=== PATIENT | male | born 1960 | race Hispanic/Latino ===

== ENCOUNTER 2019-11-21 15:59 | Observation (INO) | payer BC, SELFPAY ==
--- NOTE | 2019-11-21 16:20 | RAD ---
Chest one view HISTORY: Chest pain. FINDINGS: Cardiac silhouette and pulmonary vasculature are unremarkable. Mediastinum is midline. No c onfluent airspace consolidation or evidence of pneumothorax. IMPRESSION: Normal exam.
[2019-11-21 16:49] LABS: #Basophils 0.1 thou/uL (0.0-0.2); #Eosinphils 0.2 thou/uL (0.0-0.7); #Lymphocytes 2.7 thou/uL (1.20-3.40); #Monocytes 0.7 thou/uL (0.11-0.59); #Neutrophils 5.5 thou/uL (1.40-6.50); %Basophils 0.7 % (0.0-1.0); %Eosinophils 1.8 % (0.0-10.0); %Lymphocytes 29.9 % (21.0-51.0); %Monocytes 7.2 % (0.0-10.0); %Neutrophils 60.4 % (42.0-75.0); Hemoglobin 15.7 g/dL (14.0-18.0); Mean Corpuscular HGB CONC 33.2 g/dL (32.0-36.0); Mean Corpuscular Volume 90.4 fL (78.0-98.0); Mean Platelet Volume 9.4 fL (7.4-10.4); Platelet Count 214 thou/uL (130-400); Red Blood Cell (RBC) Count 5.26 mill/uL (4.70-6.10); White Blood Cell (WBC) Count 9.1 thou/uL (4.8-10.8)
[2019-11-21 17:12] LABS: ALT (SGPT) 57 U/L (8-55); AST (SGOT) 38 U/L (5-34); Albumin 4.4 g/dL (3.5-5.0); Alkaline Phosphatase 74 U/L (40-110); Anion Gap 12 mmol/L (10-20); BUN (Urea Nitrogen) 14 mg/dL (8.4-25.7); Bilirubin, Total 0.3 mg/dL (0.2-1.2); CK (CPK) 272 U/L (30-200); Calc. Creatinine Clearance 0 mL/min (70-130); Calcium 9.2 mg/dL (7.8-10.44); Carbon Dioxide 29 mmol/L (22-29); Chloride 104 mmol/L (98-107); Estimated GFR-MDRD 70; Globulin 3.7 g/dL (2.4-3.5); Glucose 110 mg/dL (70-105); Potassium 3.8 mmol/L (3.5-5.1); Protein, Total 8.1 g/dL (6.0-8.3); Sodium 141 mmol/L (136-145)
[2019-11-21] MEDS ORDERED: Nitroglycerin 2% Ointment 1 INCH/1 GM Packet ONE (17:19)
[2019-11-21 17:55] LABS: Bilirubin Negative (Negative); Blood, Urine Negative (Negative); Clarity Clear (Clear); Glucose, Urine (Dipstick) Normal (Negative); Leukocyte Negative Leu/uL (Negative); Nitrite Negative (Negative); Protein, Urine (Dipstick) 10 mg/dL (Neg-Trace); Urobilinogen Normal mg/dL (Less than 2)
[2019-11-21 18:07] LABS: Amphetamine Not Detected (NotDetected); Barbiturates Screen Not Detected (NotDetected); Benzodiazepine Screen Not Detected (NotDetected); Cocaine Metabolite Screen Not Detected (NotDetected); Medtox Control Line Valid? VALID (VALID); Medtox Reader # READER 1; Methadone Not Detected (NotDetected); Methamphetamine Not Detected (NotDetected); Opiate Screen Not Detected (NotDetected); Oxycodone Screen Not Detected (NotDetected); Phencyclidine (PCP) Not Detected (NotDetected); THC/Cannabinoid Screen Not Detected (NotDetected); Tricyclic Screen Not Detected (NotDetected)
[2019-11-21 18:10] LABS: Acetaminophen Less than 6.0 mcg/mL (10.0-30.0); Alcohol Less than 10 mg/dL (Less than 10); Salicylate Less than 8.0 mg/dL (15.0-30.0)
[2019-11-21 20:02] LABS: Troponin I 0.017 ng/mL (< 0.028)
[2019-11-21 20:29] VITALS: BMI 33.7
[2019-11-21] MEDS ORDERED: Ondansetron PF 4 MG/2 ML Vial IVP PRN (21:12)
[2019-11-21] MEDS ORDERED: Ondansetron ODT 4 MG TAB SL PRN (21:12)
[2019-11-21] MEDS ORDERED: Nitroglycerin 0.4 MG TAB (25 Tab Bottle) SL PRN (22:01)
[2019-11-21] MEDS ORDERED: Acetaminophen 325 MG TAB PO PRN (22:04)
[2019-11-21] MEDS ORDERED: Acetaminophen 650 MG Suppository PR PRN (22:04)
[2019-11-21 23:00] LABS: Troponin I 0.013 ng/mL (< 0.028)
--- NOTE | 2019-11-21 23:22 | HP ---
TIME OF ASSESSMENT: 2100 hours. CHIEF COMPLAINT: Left-sided chest pain. HISTORY OF PRESENT ILLNESS: Mr. Brady is a 59-year-old gentleman, who presents complaining of intermittent chest discomfort for the last 4 days to the left side of his chest. The patient states it feels like a pressure that comes and goes. At its worst, it is a 6 or 7/10 in severity. He denies any radiating pain, but reports chronic left shoulder and left arm pain. The patient states that was due to a previous injury. The patient reports being worried that this left-sided chest pain might be his heart, but states that he often weight lifts and approximately 4 to 5 days ago had bench pressed an excessive amount of weight on his own at home in his garage having difficulty taking the weights off him and states it almost fell on his head when he tried to put the weights back. The patient denies any limited range of motion in his upper extremities. Denies any other trauma or injury. Has not had any associated shortness of breath, diaphoresis, nausea, or vomiting. He has otherwise felt well in himself. Denies any recent cough or hemoptysis. No lower extremity swelling or edema. REVIEW OF SYSTEMS: All other review of systems are negative. EMERGENCY DEPARTMENT COURSE: In the Emergency Department, the patient underwent an EKG, which showed normal sinus rhythm with a heart rate of 76. He had no ST changes or T-wave abnormalities. There were some changes concerning for LVH. He was given and 500 mL of normal saline. His blood pressure at initial presentation was 171/80. He had a chest x-ray done showing no acute changes. Laboratory studies were also done showing a normal full blood count. BUN 14, creatinine 1.08, and GFR 70. Glucose 110, calcium 9.2, total bilirubin 0.3, AST 38, ALT 57, alkaline phosphatase 74, lipase 31. CK 272, troponin I negative x2, albumin 4.4. Urinalysis was unremarkable and urine drug screen was unremarkable as well. Plasma alcohol level negative. PAST MEDICAL HISTORY: Hypertension, history of hepatitis C, treated. PAST SURGICAL HISTORY: Hernia repair x2. SOCIAL HISTORY: The patient denies any current tobacco use, alcohol consumption, or illicit drug use. He previously abused cocaine, heroin and marijuana, but states that has been several years. ALLERGIES: NO KNOWN DRUG ALLERGIES. CURRENT MEDICATIONS: 1. Famotidine. 2. Amlodipine. 3. Hydrochlorothiazide. PHYSICAL EXAMINATION: GENERAL: The patient appears well developed, well nourished, is in no acute distress. VITAL SIGNS: Temperature 97.4, pulse 77, respirations 16, O2 saturation 96% on room air, blood pressure 122/67. HEENT: Normocephalic and atraumatic. Pupils are equal, round, and reactive to light. Sclerae without icterus. Oropharynx is clear. NECK: Supple. No lymphadenopathy. LUNGS: Clear to auscultation bilaterally without wheezes, rales, or rhonchi. CARDIAC: Regular rate and rhythm without audible murmurs, rubs, or gallops. Mild reproducible left-sided chest discomfort on palpation made slightly worse with movement of his left upper extremity against resistance. ABDOMEN: Soft, obese, nondistended, nontender. Normoactive bowel sounds present. No guarding or rigidity. No renal angle tenderness. EXTREMITIES: No lower leg swelling or edema. NEUROLOGIC: Alert and oriented x3. SKIN: Warm and dry. INVESTIGATIONS: As mentioned above in HPI. IMPRESSION AND PLAN: Mr. Brady is a 59-year-old gentleman, who presents with complaints of chest pain and is being admitted for the followin. Acute coronary syndrome rule out. The patient with history of hypertension. He reports his blood pressure was high in the emergency department, but does not check it at home. Reports heavy lifting with weights 4 days ago. Weight is higher than what he normally will bench press and has some mild reproducible pain on palpation, slightly made worse with movement. Pain is potentially musculoskeletal in nature given recent activity. However, due to risk factors, we will continue to trend troponin's and order a cardiac stress test, which he has never had done. The patient denies any drug use for many years. 2. Hypertension. Monitor blood pressure. Resume home medications. 3. Gastrointestinal prophylaxis with famotidine. 4. Deep venous thrombosis prophylaxis. The patient is ambulatory. 5. Code status full. Surrogate decision maker is his . Case was discussed with attending, who agrees with plan of care as described above. Job ID: [id number]
[2019-11-21] MEDS: Sodium Chloride 0.45% 1,000 ML IV SCH (23:57)
[2019-11-21] MEDS ORDERED: Nitroglycerin 2% Ointment 1 INCH/1 GM Packet TOP SCH (23:59)
[2019-11-22 05:19] LABS: #Basophils 0.1 thou/uL (0.0-0.2); #Eosinphils 0.2 thou/uL (0.0-0.7); #Monocytes 0.8 thou/uL (0.11-0.59); #Neutrophils 8.2 thou/uL (1.40-6.50); %Basophils 0.6 % (0.0-1.0); %Eosinophils 1.6 % (0.0-10.0); %Lymphocytes 17.5 % (21.0-51.0); %Monocytes 7.3 % (0.0-10.0); %Neutrophils 73.1 % (42.0-75.0); Hemoglobin 14.7 g/dL (14.0-18.0); Mean Corpuscular HGB CONC 31.7 g/dL (32.0-36.0); Mean Corpuscular Hemoglobin 28.6 pg (27.0-31.0); Mean Corpuscular Volume 90.3 fL (78.0-98.0); Mean Platelet Volume 9.5 fL (7.4-10.4); Platelet Count 198 thou/uL (130-400); RBC Distribution Width 12.2 % (11.5-14.5); Red Blood Cell (RBC) Count 5.14 mill/uL (4.70-6.10); White Blood Cell (WBC) Count 11.2 thou/uL (4.8-10.8)
[2019-11-22 05:42] LABS: Anion Gap 11 mmol/L (10-20); BUN (Urea Nitrogen) 14 mg/dL (8.4-25.7); Calc. Creatinine Clearance 132 mL/min (70-130); Calcium 8.7 mg/dL (7.8-10.44); Carbon Dioxide 24 mmol/L (22-29); Chloride 107 mmol/L (98-107); Cholesterol 186 mg/dl (< 200 Desired); Estimated GFR-MDRD Greater than 90; Glucose 98 mg/dL (70-105); HDL Cholesterol 37 mg/dL (>60 Neg Risk); LDL Cholesterol, Calculated 127 mg/dL; Potassium 3.9 mmol/L (3.5-5.1); Sodium 138 mmol/L (136-145); Triglycerides 109 mg/dL (Less than 150)
[2019-11-22] MEDS ORDERED: Aspirin 81 mg Enteric Coated Tablet PO SCH (09:00)
[2019-11-22] MEDS ORDERED: Famotidine 20 MG TAB PO SCH (09:00)
[2019-11-22] MEDS ORDERED: Amlodipine 10 MG TAB PO SCH (09:00)
[2019-11-22] MEDS ORDERED: ADENOSINE 60 MG/20 ML VIAL ONE (09:34)
[2019-11-22] MEDS: Sodium Chloride 0.45% 1,000 ML IV SCH (11:41)
[2019-11-22 12:05] VITALS: BP 143/83; TEMP 97.3
--- NOTE | 2019-11-22 12:06 | NM ---
NM Cardiac Stress W EF WF HISTORY: Chest pain COMPARISON: None. FINDINGS: Examination is performed using 31.6 mCi 90 9M technetium sestamibi on the stress and 10.4 m Ci on the resting images. There is a normal distribution of radiopharmaceutical without signs of ischemia or scar. Wall motion: There is suggestion of some minimal hypokinesis to the apex. Left ventricular ejection fraction: Calculated left ventricular ejection fraction is 49%. IMPRESSION: 1. No evidence of ischemia. 2. Suggestion of some minimal hypokinesis to the apex of the heart with a calculated left ventricular ejection fraction 49%. Please correlate with echocardiogram.
[2019-11-22] MEDS ORDERED: FLU VACC QS2019-20(6MOS UP)/PF 60 MCG/0.5 ML SYRINGE IM ONE (21:00)
--- NOTE | 2019-11-23 00:03 | DIS ---
DATE OF ADMISSION: 11/21/2019 DATE OF DISCHARGE: 11/22/2019 REASON FOR HOSPITALIZATION: Chest pain. SIGNIFICANT FINDINGS: The patient was found to have no acute cardiothoracic pathology and he was diagnosed with muscle strain from aggressive weightlifting including the bench press. PROCEDURES PERFORMED AND TREATMENTS RENDERED: The patient was admitted to the medical unit with telemetry and monitored on continuous telemetry throughout his hospitalization and there were no acute events. The patient went for nuclear medicine stress test-please see full report for details-there was no reversible ischemia. The patient's metabolic workup was benign and his labs were all within the normal limits. The patient with negative cardiac enzymes. The patient with negative urinary toxicology. The patient was recommended safe for discharge with close followup with his primary care physician and recommended to abstain from strenuous weightlifting exercises until he is healed and recovered. CONDITION ON DISCHARGE: Stable. SPECIFIC INSTRUCTIONS FOR THE PATIENT/FAMILY: 1. I instructed the patient that as needed he may take ibuprofen, which will help with two parts including pain control and inflammation. I recommended he always take ibuprofen with food. 2. The patient is recommended to take all other medications as directed by his primary care physician. 3. The patient is recommended to abstain from aggressive weightlifting activities until he is properly healed and then he may return back to weightlifting when cleared by his primary care physician. 4. The patient is recommended to follow up with primary care physician in the next 5 to 7 days. 5. The patient is recommended to follow up with exercise gymnastics coach or instructor to avoid future complications of aggressive weight lift training. 6. The patient is recommended to return to acute care hospital immediately if signs or symptoms return, worsen, or any other new symptoms occur. HOME MEDICATIONS: 1. Tadalafil 20 mg p.o. q.3 days. 2. Famotidine 40 mg p.o. daily p.r.n. indigestion. 3. Amlodipine 10 mg p.o. daily. 4. Hydrochlorothiazide 25 mg one tablet p.o. daily. 5. Aspirin 81 mg one tablet p.o. daily. TIME SPENT: Greater than 32 minutes spent coordinating care and discharge process for this patient. Job ID: [id number]
== END 2019-11-22 13:34 | disposition home or self-care (01) ==
LOC: ERS 15:59 → 2SW 19:44
PROVIDERS: ADMIT Emergency Medicine; ATTEND Emergency Medicine
DX: R07.89 Other chest pain (principal); I10 Essential (primary) hypertension; F17.290 Nicotine dependence, other tobacco product, uncomplicated; Z79.82 Long term (current) use of aspirin; Z79.899 Other long term (current) drug therapy
CPT/HCPCS: 36415; 71045; 78452; 80048; 80053; 80061; 80306; 80307; 81003; 82550; 83690; 83880; 84484; 85025; 85379; 93005; 93017; 96360; 96361; A9500; G0378; J0153

== ENCOUNTER 2021-03-01 16:05 | Emergency (ER) | payer SELFPAY ==
[2021-03-01 16:37] LABS: #Lymphocytes 1.1 thou/uL (1.20-3.40); #Monocytes 1.3 thou/uL (0.11-0.59); #Neutrophils 11.1 thou/uL (1.40-6.50); %Basophils 0.2 % (0.0-1.0); %Eosinophils 0.1 % (0.0-10.0); %Lymphocytes 8.2 % (21.0-51.0); %Monocytes 9.4 % (0.0-10.0); %Neutrophils 82.2 % (42.0-75.0); Hemoglobin 16.3 g/dL (14.0-18.0); Mean Corpuscular Hemoglobin 30.9 pg (27.0-31.0); Mean Corpuscular Volume 90.8 fL (78.0-98.0); Platelet Count 219 thou/uL (130-400); RBC Distribution Width 13.3 % (11.5-14.5); Red Blood Cell (RBC) Count 5.29 mill/uL (4.70-6.10); White Blood Cell (WBC) Count 13.5 thou/uL (4.8-10.8)
[2021-03-01 16:48] LABS: PTT 32.2 sec (22.9-36.1); Prothrombin Time 13.7 sec (12.0-14.7)
[2021-03-01 16:59] LABS: ALT (SGPT) 47 U/L (8-55); AST (SGOT) 43 U/L (5-34); Albumin 4.7 g/dL (3.5-5.0); Alkaline Phosphatase 61 U/L (40-110); Anion Gap 17 mmol/L (10-20); BUN (Urea Nitrogen) 22 mg/dL (8.4-25.7); Calc. Creatinine Clearance 0 mL/min (70-130); Calcium 9.3 mg/dL (7.8-10.44); Carbon Dioxide 24 mmol/L (22-29); Chloride 101 mmol/L (98-107); Globulin 3.9 g/dL (2.4-3.5); Glucose 119 mg/dL (70-105); Lipase 22 U/L (8-78); Potassium 3.9 mmol/L (3.5-5.1); Protein, Total 8.6 g/dL (6.0-8.3); Sodium 138 mmol/L (136-145)
[2021-03-01 17:27] LABS: Bacteria/HPF None Seen HPF (None Seen); Bilirubin Negative (Negative); Blood, Urine 1+ (Negative); Clarity Clear (Clear); Glucose, Urine (Dipstick) 70 mg/dL (Negative); Ketone, Urine Trace mg/dL (Negative); Leukocyte Negative Leu/uL (Negative); Nitrite Negative (Negative); Protein, Urine (Dipstick) 50 mg/dL (Neg-Trace); RBC/HPF 21-50 HPF (0-3); Specific Gravity, Urine 1.018 (1.002-1.036); Squamous Epithelial 0-3 HPF (0-3); Urobilinogen Normal mg/dL (Less than 2); WBC/HPF 0-3 HPF (0-3); pH, Urine 5.5 (5.0-9.0)
[2021-03-01 19:37] LABS: Lactic Acid 1.6 mmol/L (0.5-2.2)
== END 2021-03-01 20:01 | disposition home or self-care (01) ==
LOC: ERS 16:05
DX: R33.9 Retention of urine, unspecified (principal); Z79.899 Other long term (current) drug therapy; I10 Essential (primary) hypertension
CPT/HCPCS: 36415; 51702; 80053; 81003; 81015; 83605; 83690; 85025; 85610; 85730; 87040; 87086; 93005

== ENCOUNTER 2021-03-02 09:30 | Emergency (ER) | payer SELFPAY ==
[2021-03-02 10:30] LABS: Bacteria/HPF None Seen HPF (None Seen); Bilirubin Negative (Negative); Blood, Urine 2+ (Negative); Clarity Clear (Clear); Glucose, Urine (Dipstick) 70 mg/dL (Negative); Ketone, Urine Negative (Negative); Leukocyte Negative Leu/uL (Negative); Nitrite Negative (Negative); Protein, Urine (Dipstick) 10 mg/dL (Neg-Trace); RBC/HPF 21-50 HPF (0-3); Specific Gravity, Urine 1.014 (1.002-1.036); Squamous Epithelial None Seen HPF (0-3); Urobilinogen Normal mg/dL (Less than 2)
== END 2021-03-02 11:02 | disposition home or self-care (01) ==
LOC: ERS 09:30
DX: R33.9 Retention of urine, unspecified (principal); I10 Essential (primary) hypertension; Z86.19 Personal history of other infectious and parasitic diseases
CPT/HCPCS: 51702; 81003

== ENCOUNTER 2021-03-03 22:08 | Emergency (ER) | payer SELFPAY | END 2021-03-04 01:18 | disposition home or self-care (01) | LOC: ERS 22:08 | DX: T83.83XA Hemorrhage due to genitourinary prosthetic devices, implants and grafts, initial encounter (principal); I10 Essential (primary) hypertension; B19.20 Unspecified viral hepatitis C without hepatic coma; Z79.899 Other long term (current) drug therapy | CPT/HCPCS: 99283 ==

== ENCOUNTER 2021-03-10 16:44 | Emergency (ER) | payer SELFPAY ==
[2021-03-10 18:35] LABS: Bacteria/HPF None Seen HPF (None Seen); Bilirubin Negative (Negative); Blood, Urine 3+ (Negative); Clarity Turbid (Clear); Glucose, Urine (Dipstick) Normal (Negative); Ketone, Urine Negative (Negative); Leukocyte 500 Leu/uL (Negative); Nitrite Negative (Negative); Protein, Urine (Dipstick) 10 mg/dL (Neg-Trace); Specific Gravity, Urine 1.009 (1.002-1.036); Squamous Epithelial None Seen HPF (0-3); Urobilinogen Normal mg/dL (Less than 2); WBC/HPF Greater than 50 HPF (0-3); pH, Urine 5.5 (5.0-9.0)
[2021-03-10 18:58] LABS: #Basophils 0.1 thou/uL (0.0-0.2); #Lymphocytes 1.8 thou/uL (1.20-3.40); #Monocytes 0.9 thou/uL (0.11-0.59); #Neutrophils 11.1 thou/uL (1.40-6.50); %Basophils 0.5 % (0.0-1.0); %Eosinophils 0.1 % (0.0-10.0); %Lymphocytes 13.2 % (21.0-51.0); %Monocytes 6.7 % (0.0-10.0); %Neutrophils 79.5 % (42.0-75.0); Hemoglobin 15.9 g/dL (14.0-18.0); Mean Corpuscular HGB CONC 35.2 g/dL (32.0-36.0); Mean Corpuscular Hemoglobin 32.1 pg (27.0-31.0); Mean Corpuscular Volume 91.3 fL (78.0-98.0); Mean Platelet Volume 8.6 fL (7.4-10.4); Platelet Count 235 thou/uL (130-400); RBC Distribution Width 12.7 % (11.5-14.5); Red Blood Cell (RBC) Count 4.96 mill/uL (4.70-6.10); White Blood Cell (WBC) Count 13.9 thou/uL (4.8-10.8)
[2021-03-10 19:18] LABS: ALT (SGPT) 47 U/L (8-55); AST (SGOT) 25 U/L (5-34); Albumin 4.3 g/dL (3.5-5.0); Alkaline Phosphatase 65 U/L (40-110); Anion Gap 14 mmol/L (10-20); BUN (Urea Nitrogen) 8 mg/dL (8.4-25.7); Bilirubin, Total 0.6 mg/dL (0.2-1.2); Calc. Creatinine Clearance 0 mL/min (70-130); Carbon Dioxide 25 mmol/L (22-29); Chloride 103 mmol/L (98-107); Globulin 3.4 g/dL (2.4-3.5); Glucose 106 mg/dL (70-105); Potassium 4.4 mmol/L (3.5-5.1); Protein, Total 7.7 g/dL (6.0-8.3); Sodium 138 mmol/L (136-145)
== END 2021-03-10 19:53 | disposition home or self-care (01) ==
LOC: ERS 16:44
DX: N39.0 Urinary tract infection, site not specified (principal); I10 Essential (primary) hypertension
CPT/HCPCS: 36415; 80053; 81003; 81015; 85025; 87077; 87086; 87186; 99283